=== PATIENT | female | born 1945 | race Caucasian/White ===

== ENCOUNTER → 2017-12-10 | Outpatient (CLI) | payer OTHER | LOC: FIMAGING 12:45 | PROVIDERS: ATTEND Internal Medicine | DX: Z12.31 Encounter for screening mammogram for malignant neoplasm of breast (principal); Z85.3 Personal history of malignant neoplasm of breast; Z80.3 Family history of malignant neoplasm of breast ==

== ENCOUNTER → 2018-03-20 | Outpatient (CLI) | payer OTHER ==
[~2018-03-20] MED LIST: IOPAMIDOL (ISOVUE 370) 100 ML BTL IV ONE; LIDOCAINE 1% 300 MG/30 ML SDV ONE
== END ==
LOC: FIMAGING 13:03
PROVIDERS: ATTEND Physician Assistant
PROC: 0R9J3ZX Drainage of Right Shoulder Joint, Percutaneous Approach, Diagnostic (ICD-10-PCS; principal; 2018-03-20)
DX: M25.511 Pain in right shoulder (principal)
CPT/HCPCS: 20610; 77002; Q9967

== ENCOUNTER 2019-04-01 16:20 | Emergency (ER) | payer OTHER ==
--- NOTE | 2019-04-01 16:31 | EDPHY ---
HPI/HX/ROS/PE/MDM Narrative: CHIEF COMPLAINT: Nausea, dizziness HPI: This patient is a 73 [id number] with history of hypertension, hyperlipidemia, remote history of sagittal sinus thrombosis. She had shoulder surgery recently and took a hydrocodone last night before bed for pain. This morning, she woke feeling nauseous and vomited several times. She was able to take a nap following this, but woke very diaphoretic, "soaking wet". She continued vomiting. She feels generally weak. She endorses pain in her neck and upper back. She denies any room-spinning sensation. No abdominal pain. She notes hydrocodone has made her feel dizzy and nauseous in the past, but never so severe as today. Denies any recent falls, injuries, or chiropractic manipulation. She denies chest pain, shortness of breath, fever, dysuria, or any unilateral weakness in her extremities. Of note, the patient describes that when she had her central venous thrombosis, felt "as if she was having a stroke" with symptoms including aphasia, difficulty using her TV remote. This is dissimilar from her symptoms today. She states that the etiology of her sagittal sinus thrombosis remains unknown. REVIEW OF SYSTEMS: A comprehensive 10 system review of systems is otherwise negative aside from elements mentioned in the history of present illness and medical decision making. PMH: Hypertension. Hyperlipidemia. 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 History of abdominal surgeries (lap-band with subsequent revision and removal). Essential tremor. SOCIAL HISTORY: Retired. Lives in [place]. . PHYSICAL EXAM: General:Patient is alert, in no acute distress. Mild tremor. ENT:Eyes are normal to inspection. ENT inspection normal. Neck: Normal inspection. Full range of motion. Respiratory:No respiratory distress. Breath sounds normal bilaterally. Cardiovascular: Regular rate and rhythm. Strong peripheral pulses. Normal cap refill. Abdomen:The abdomen is nontender to palpation. There are no peritoneal signs. There are normal bowel sounds. Back: Normal to inspection. No tenderness to palpation. Skin: Normal color. No rash. Warm and dry. Extremities: Normal appearance. Full range of motion. Neuro: Oriented x3. Normal motor function. Normal sensory function. ED Course: 73 y/o female presents with dizziness and vomiting. 16:30 On my initial assessment, patient is uncomfortable appearing, vomiting actively, and unable to participate in an interview. Plan to administer 4mg IV Zofran and 1L IV NS for symptom relief. Plan for EKG, labs including CBC, chemistries, POC troponin. 16:50 Patient's nausea is now controlled. She is alert and able to participate in the interview. Exam is largely unremarkable, abdomen is benign. Plan for abdominal x-ray, additional laboratory studies including liver, lipase, UA. Patient continues to complain of nausea, plan to administer 12.5mg IV Phenergan for symptom relief. Abdominal x-ray is negative for obstruction. 18:28 Patient is feeling much better following medication administration. Plan for PO challenge. Reassessed patient. She continues to feel better and has passed PO challenge. Plan to discharge home in good condition with prescription for Phenergan. Follow up and return precautions discussed. She is comfortable with this plan. MDM: This patient presents with nausea and vomiting of unclear etiology. Her symptoms have resolved with symptomatic treatment and she feels back to normal, is tolerating PO. This is similar to other episodes she has had in the past. We discussed possibility that this represents intracranial process given hx of dural venous sinus thrombosis in past, but patient states this feels very different and given rapid resolution of symptoms I think this is unlikely. She declined any neuro imaging today. I see no signs of CVA, bowel obstruction, vertigo, ACS. - Data Points Imaging Results: Imaging Impressions Abdomen X-Ray 04/01/19 17:01 Impression: Paucity of bowel gas. No evidence of obstruction. Laboratory Results: Laboratory Results 04/01/19 16:51 04/01/19 16:51 04/01/19 04/01/19 04/01/19 18:20 16:55 16:51 WBC RBC Hgb Hct MCV MCH MCHC RDW Plt Count MPV Neut % (Auto) Lymph % (Auto) [place] % (Auto) Eos % (Auto) Baso % (Auto) Nucleat RBC Rel Count Absolute Neuts (auto) Absolute Lymphs (auto) Absolute Monos (auto) Absolute Eos (auto) Absolute Basos (auto) Absolute Nucleated RBC Immature Gran % Immature Gran # Sodium Potassium Chloride Carbon Dioxide Anion Gap BUN Creatinine Estimated GFR Glucose Calcium Total Bilirubin 1.5 mg/dL H mg/dL (0.1-1.4) Conjugated Bilirubin 0.4 mg/dL mg/dL (0.0-0.5) Unconjugated Bilirubin 1.1 mg/dL mg/dL (0.0-1.1) AST 94 IU/L H IU/L (14-46) ALT 48 IU/L IU/L (9-52) Alkaline Phosphatase 109 IU/L IU/L (38-126) POC Troponin I 0.01 ng/mL ng/mL (0.00-0.08) Total Protein 8.5 g/dL H g/dL (6.3-8.2) Albumin 4.8 g/dL g/dL (3.5-5.0) Lipase 115 IU/L IU/L (23-300) Urine Color YELLOW Urine Appearance HAZY Urine pH 5.0 (5.0-7.5) Ur Specific [place] 1.023 (1.002-1.030) Urine Protein NEGATIVE (NEGATIVE) Urine Ketones 2+ H (NEGATIVE) Urine Blood NEGATIVE (NEGATIVE) Urine Nitrate POSITIVE H (NEGATIVE) Urine Bilirubin NEGATIVE (NEGATIVE) Urine Urobilinogen NEGATIVE EU EU (0.2-1.0) Ur Leukocyte Esterase NEGATIVE (NEGATIVE) Urine RBC 1-3 /hpf /hpf (0-3) Urine WBC 1-3 /hpf /hpf (0-3) Ur Epithelial Cells TRACE /lpf /lpf (NONE-1+) Urine Bacteria 1+ /hpf H /hpf (NONE SEEN) Urine Mucus TRACE /lpf /lpf (NONE-1+) Urine Glucose NEGATIVE (NEGATIVE) 04/01/19 04/01/19 16:51 16:51 WBC 8.96 10^3/uL 10^3/uL (3.80-9.50) RBC 5.14 10^6/uL 10^6/uL (4.18-5.33) Hgb 16.8 g/dL H g/dL (12.6-16.3) Hct 51.1 % H % (38.0-47.0) MCV 99.4 fL fL (81.5-99.8) MCH 32.7 pg pg (27.9-34.1) MCHC 32.9 g/dL g/dL (32.4-36.7) RDW 13.3 % % (11.5-15.2) Plt Count 248 10^3/uL 10^3/uL (150-400) MPV 10.0 fL fL (8.7-11.7) Neut % (Auto) 69.7 % % (39.3-74.2) Lymph % (Auto) 20.0 % % (15.0-45.0) [place] % (Auto) 7.1 % % (4.5-13.0) Eos % (Auto) 2.0 % % (0.6-7.6) Baso % (Auto) 0.9 % % (0.3-1.7) Nucleat RBC Rel Count 0.0 % % (0.0-0.2) Absolute Neuts (auto) 6.24 10^3/uL 10^3/uL (1.70-6.50) Absolute Lymphs (auto) 1.79 10^3/uL 10^3/uL (1.00-3.00) Absolute Monos (auto) 0.64 10^3/uL 10^3/uL (0.30-0.80) Absolute Eos (auto) 0.18 10^3/uL 10^3/uL (0.03-0.40) Absolute Basos (auto) 0.08 10^3/uL 10^3/uL (0.02-0.10) Absolute Nucleated RBC 0.00 10^3/uL 10^3/uL (0-0.01) Immature Gran % 0.3 % % (0.0-1.1) Immature Gran # 0.03 10^3/uL 10^3/uL (0.00-0.10) Sodium 140 mEq/L mEq/L (135-145) Potassium 4.6 mEq/L mEq/L (3.5-5.2) Chloride 109 mEq/L mEq/L (97-110) Carbon Dioxide 15 mEq/l L mEq/l (22-31) Anion Gap 16 mEq/L H mEq/L (6-14) BUN 18 mg/dL mg/dL (7-23) Creatinine 0.9 mg/dL mg/dL (0.6-1.0) Estimated GFR > 60 Glucose 131 mg/dL H mg/dL (70-100) Calcium 10.4 mg/dL mg/dL (8.5-10.4) Total Bilirubin Conjugated Bilirubin Unconjugated Bilirubin AST ALT Alkaline Phosphatase POC Troponin I Total Protein Albumin Lipase Urine Color Urine Appearance Urine pH Ur Specific [place] Urine Protein Urine Ketones Urine Blood Urine Nitrate Urine Bilirubin Urine Urobilinogen Ur Leukocyte Esterase Urine RBC Urine WBC Ur Epithelial Cells Urine Bacteria Urine Mucus Urine Glucose Medications Given: Discontinued Medications Sodium Chloride (Ns) 1,000 mls @ 0 mls/hr IV EDNOW ONE; Wide Open PRN Reason: Protocol Stop: 04/01/19 16:40 Last Admin: 04/01/19 16:56 Dose: 1,000 mls Ondansetron HCl (Zofran) 4 mg IVP EDNOW ONE Stop: 04/01/19 16:40 Last Admin: 04/01/19 16:56 Dose: 4 mg Promethazine HCl (Phenergan) 12.5 mg IVP EDNOW ONE Stop: 04/01/19 17:34 Last Admin: 04/01/19 17:36 Dose: 12.5 mg Point of Care Test Results: Chemistry 04/01/19 16:51 POC Troponin I 0.01 ng/mL ng/mL (0.00-0.08) General Time Seen by Provider: 04/01/19 16:30 Initial Vital Signs: Initial Vital Signs Temperature (C) 36.5 C 04/01/19 16:26 Heart Rate 98 04/01/19 16:26 Respiratory Rate 16 04/01/19 16:26 Blood Pressure 185/103 H 04/01/19 16:26 O2 Sat (%) 96 04/01/19 16:26 O2 Delivery Mode Room Air Allergies/Adverse Reactions: Penicillins Allergy (Unknown, Verified 04/01/19 16:24) Rash Home Medications: Medication Instructions Recorded SIMVASTATIN 01/27/10 PARoxetine CR 07/28/16 Lamictal 04/01/19 Nexium 04/01/19 Oxycodone HCl 04/01/19 Promethazine HCl [Phenergan 25mg 25 mg PO Q4-6PRN PRN #10 tab 04/01/19 (*)] Propranolol HCl 04/01/19 Departure - Departure Disposition: Home, Routine, Self-Care Clinical Impression: Nausea & vomiting Condition: Good Instructions: Acute Nausea and Vomiting (ED) Additional Instructions: Follow up with your primary care provider in 2-3 days. Take Phenergan as prescribed as needed for nausea. Return to the emergency department for fever, uncontrollable vomiting or diarrhea, abdominal pain, chest pain, shortness of breath, or other worsening of condition. Referrals: Brandan Ndiaye MD [Primary Care Provider] - As per Instructions Prescriptions: Promethazine HCl [Phenergan 25mg (*)] 25 mg PO Q4-6PRN PRN #10 tab PRN Reason: Nausea/Vomiting, Use 1st Report Scribed for: Kd Calixto Report Scribed by: Nani Troy Date of Report: 04/01/19 Time of Report: 16:31 Physician Review and Approval Statement: Portions of this note were transcribed by an ED scribe. I personally performed the history, physical exam, and medical decision making; and confirm the accuracy of the information in the transcribed note.
[2019-04-01] MEDS ORDERED: ONDANSETRON 4 MG/2 ML VIAL ONE (16:37)
[2019-04-01] MEDS ORDERED: NS 1,000 ML IV ONE (16:39)
[2019-04-01] MEDS ORDERED: ONDANSETRON 4 MG/2 ML VIAL IVP ONE (16:39)
[2019-04-01 17:15] LABS: PLATELET COUNT 248 10^3/uL (150-400)
[2019-04-01] MEDS ORDERED: PROMETHAZINE HCL 25 MG/ML INJ IVP ONE (17:33)
[2019-04-01 18:41] VITALS: BP 155/75
--- NOTE | 2019-04-01 21:09 | CPEKG ---
Test Reason : OPEN Blood Pressure : / mmHG Vent. Rate : 080 BPM Atrial Rate : 082 BPM P-R Int : 175 ms QRS Dur : 087 ms QT Int : 415 ms P-R-T Axes : 052 028 031 degrees QTc Int : 479 ms Sinus rhythm Confirmed by Kd Calixto ([id number] on 04/01/2019 9:09:17 PM Referred By: Kd Calixto Confirmed By:Kd Calixto
== END 2019-04-01 19:00 | disposition home or self-care (01) ==
DX: R11.2 Nausea with vomiting, unspecified (principal); I10 Essential (primary) hypertension; E78.5 Hyperlipidemia, unspecified; E86.9 Volume depletion, unspecified
CPT/HCPCS: 74018; 93005; 96361; 96374; 96375; 99285; J2405; J2550; 84484-ER

== ENCOUNTER → 2019-04-22 | Outpatient (CLI) | payer OTHER | LOC: FIMAGING 12:17 ==